=== PATIENT | male | born 1985 | race Caucasian/White ===

== ENCOUNTER 2019-10-18 16:33 | Emergency (ER) | payer OTHER ==
[~2019-10-18] VITALS: Ht 175.3 cm; Wt 76.7 kg
[2019-10-18 16:55] VITALS: BP 136/68
[2019-10-18] MEDS ORDERED: BACITRACIN OINT 500 UNITS/GM PKT TP ONE (17:15)
[2019-10-18] MEDS ORDERED: KETOROLAC 30 MG/ML VIAL IM ONE (17:15)
[2019-10-18 17:46] VITALS: BP 136/68
== END 2019-10-18 17:46 | disposition home or self-care (01) ==
LOC: MED 16:33
DX: S16.1XXA Strain of muscle, fascia and tendon at neck level, initial encounter (principal); V49.49XA Driver injured in collision with other motor vehicles in traffic accident, initial encounter; Y93.89 Activity, other specified; Y92.89 Other specified places as the place of occurrence of the external cause; Y99.8 Other external cause status
CPT/HCPCS: 99283; J1885

== ENCOUNTER 2019-12-05 23:30 | Emergency (ER) | payer OTHER ==
[~2019-12-05] VITALS: Ht 175.3 cm; Wt 79.8 kg
[2019-12-05 23:48] VITALS: BP 123/72
[2019-12-06] MEDS ORDERED: IBUPROFEN 600 MG TAB PO ONE (00:05)
[2019-12-06] MEDS ORDERED: ACETAMINOPHEN 325 MG TAB PO ONE (00:05)
[2019-12-06 00:32] VITALS: BP 123/72
== END 2019-12-06 00:32 | disposition home or self-care (01) ==
LOC: MED 23:30
DX: S46.812A Strain of other muscles, fascia and tendons at shoulder and upper arm level, left arm, initial encounter (principal); S16.1XXA Strain of muscle, fascia and tendon at neck level, initial encounter; V49.40XA Driver injured in collision with unspecified motor vehicles in traffic accident, initial encounter; Y93.89 Activity, other specified; Y92.89 Other specified places as the place of occurrence of the external cause; Y99.8 Other external cause status
CPT/HCPCS: 99283

== ENCOUNTER 2020-07-08 07:49 | Emergency (ER) | payer OTHER ==
[~2020-07-08] VITALS: Ht 175.3 cm; Wt 84.4 kg
[2020-07-08 07:55] VITALS: BP 125/78
--- NOTE | 2020-07-08 07:56 | NUR ---
Patient ambulated to bed 2. RN evaluating the patient at bedside.
--- NOTE | 2020-07-08 09:10 | NUR ---
35 YEAR OLD MALE COMPLAINS OF LEFT EYE PAIN. LEFT EYE WITH VISIBLE REDNESS, STATES THAT EYE HAD TRAUMA BUT ABLE TO SEE CLEARLY. PT AOX4, BREATHING EVEN AND UNLABORED, SKIN WARM AND DRY. BED IN LOWEST POSITION, LOCKED, BED RAIL UPX1. PMH - DENIES ALLERGIES - NKA
[2020-07-08 11:00] VITALS: BP 125/78
--- NOTE | 2020-07-08 11:00 | NUR ---
Patient discharged with v/s stable. Written and verbal after care instructions about retinal detachment given and explained. Patient alert, oriented and verbalized understanding of instructions. Ambulatory with steady gait. All questions addressed prior to discharge. ID band removed. Patient advised to follow up with PMD. Rx of motrin given. Patient educated on indication of medication including possible reaction and side effects. Opportunity to ask questions provided and answered.
== END 2020-07-08 11:00 | disposition home or self-care (01) ==
LOC: MED 07:49
DX: H33.22 Serous retinal detachment, left eye (principal)
CPT/HCPCS: 76536; 99284

== ENCOUNTER 2020-07-09 18:05 | Emergency (ER) | payer OTHER ==
[~2020-07-09] VITALS: Ht 175.3 cm; Wt 74.8 kg
--- NOTE | 2020-07-09 18:35 | NUR ---
Patient ambulated to bed 6. RN evaluating patient at bedside.
[2020-07-09 18:38] VITALS: BP 119/79
--- NOTE | 2020-07-09 18:48 | NUR ---
35 Y/O MALE C/O PENILE PAIN X2 DAYS WITH DISCHARGE/ITCHING AND DYSURIA S/P NEW SEXUAL PARTNER. PATIENT DENIES ANY CHILLS/FEVER AT THIS TIME. RESP EVEN AND UNLABORED. AAOX4.
--- NOTE | 2020-07-09 19:13 | NUR ---
RECEIVED REPORT FROM MINO CARDOZA FOR CONTINUATION OF CARE.
[2020-07-09 19:35] VITALS: BP 119/79
--- NOTE | 2020-07-09 19:35 | NUR ---
PATIENT LEFT WITHOUT BEING SEEN BY MELCHOR CHAMBERLAIN. NO FURTHER CARE PROVIDED FOR PATIENT.
== END 2020-07-09 19:35 | disposition left against medical advice (07) ==
LOC: MED 18:05
DX: N48.89 Other specified disorders of penis (principal); Z53.21 Procedure and treatment not carried out due to patient leaving prior to being seen by health care provider
CPT/HCPCS: 81002

== ENCOUNTER 2020-07-10 19:35 | Emergency (ER) | payer OTHER ==
[~2020-07-10] VITALS: Ht 175.3 cm; Wt 84.8 kg
[2020-07-10 20:30] VITALS: BP 121/74
--- NOTE | 2020-07-10 20:33 | NUR ---
TO LOBBY A/W BED AMBULATORY
--- NOTE | 2020-07-10 22:14 | NUR ---
To ED Chair A
[2020-07-10 22:17] LABS: APPEARANCE,URINE CLEAR (CLEAR); BILIRUBIN,URINE NEGATIVE (NEGATIVE); BLOOD, URINE TRACE-I (NEGATIVE); COLOR,URINE YELLOW (YELLOW); LEUKOCYTE ESTERASE ,URINE NEGATIVE (NEGATIVE); NITRITE, URINE NEGATIVE (NEGATIVE); PH,URINE 5.5 (5.0-9.0); UGLUCOSE 3+ (NEGATIVE)
[2020-07-10] MEDS ORDERED: AZITHROMYCIN 250 MG TAB PO ONE (22:30)
[2020-07-10] MEDS ORDERED: cefTRIAXone 500 MG in LIDOCAINE MPF 1% 1 ML IM ONE (22:30)
[2020-07-10 22:40] LABS: RBC,URINE 0-5 /HPF (0-5)
[2020-07-10 22:41] LABS: WBC,URINE 0-5 /HPF (0-5)
[2020-07-10] MEDS ORDERED: cefTRIAXone 500 MG VIAL ONE (22:49)
[2020-07-10] MEDS ORDERED: LIDOCAINE 2% 100 MG/5 ML SYR IVP ONE (23:13)
--- NOTE | 2020-07-10 23:23 | NUR ---
Patient discharged with v/s stable. Written and verbal after care instructions given and explained. Patient verbalized understanding. Ambulatory with steady gait. All questions addressed prior to discharge. Advised to follow up with PMD.
== END 2020-07-10 23:23 | disposition home or self-care (01) ==
LOC: MED 19:35
DX: R30.0 Dysuria (principal); A64 Unspecified sexually transmitted disease
CPT/HCPCS: 36415; 81001; 96372; 99283; J0696; J2001

== ENCOUNTER 2022-08-13 19:18 | Emergency (ER) | payer OTHER ==
[~2022-08-13] VITALS: Ht 177.8 cm; Wt 72.6 kg
[2022-08-13 19:40] VITALS: BP 124/79
--- NOTE | 2022-08-13 19:43 | NUR ---
TO LOBBY A/W BED AMBULATORY
[2022-08-13 20:32] LABS: APPEARANCE,URINE CLEAR (CLEAR); BILIRUBIN,URINE NEGATIVE (NEGATIVE); BLOOD, URINE TRACE-I (NEGATIVE); COLOR,URINE YELLOW (YELLOW); LEUKOCYTE ESTERASE ,URINE NEGATIVE (NEGATIVE); NITRITE, URINE NEGATIVE (NEGATIVE); UGLUCOSE 3+ (NEGATIVE)
[2022-08-13 20:36] LABS: RBC,URINE 0-5 /HPF (0-5); WBC,URINE NONE SEEN /HPF (0-5)
--- NOTE | 2022-08-13 22:11 | NUR ---
PT TO BED #7
--- NOTE | 2022-08-13 22:36 | NUR ---
Patient being evaluated by physician at bedside.
[2022-08-13 23:03] VITALS: BP 128/76
== END 2022-08-13 23:03 | disposition home or self-care (01) ==
LOC: MED 19:18
DX: N47.6 Balanoposthitis (principal)
CPT/HCPCS: 81001; 82948; 99283

== ENCOUNTER 2023-07-13 20:36 | Emergency (ER) | payer OTHER ==
[~2023-07-13] VITALS: Ht 177.8 cm; Wt 79.4 kg
[2023-07-13 21:06] VITALS: BP 110/68; PULSE 89; RESP 20; TEMP 99; O2SAT 98
== END 2023-07-14 01:20 | disposition left against medical advice (07) ==
LOC: MED 20:36
DX: R07.9 Chest pain, unspecified (principal); Z53.21 Procedure and treatment not carried out due to patient leaving prior to being seen by health care provider
CPT/HCPCS: 99281

== ENCOUNTER 2023-11-16 12:01 | Emergency (ER) | payer SELFPAY ==
[~2023-11-16] VITALS: Ht 175.3 cm; Wt 83.9 kg
[2023-11-16 12:14] VITALS: BP 118/71; PULSE 84; RESP 16; TEMP 97.2; O2SAT 97
[2023-11-16] MEDS ORDERED: TETRACAINE HCL/PF 0.5% OPTH 4 ML BTL ONE (12:32)
[2023-11-16] MEDS: FLUORESCEIN OPTH STRIP 1 MG OP ONE (12:48)
[2023-11-16] MEDS: TETRACAINE HCL/PF 0.5% OPTH 4 ML BTL OP ONE (12:48)
[2023-11-16 12:50] VITALS: BP 118/71; PULSE 84; RESP 16; TEMP 97.2; O2SAT 97
== END 2023-11-16 12:51 | disposition home or self-care (01) ==
LOC: MED 12:01
DX: H57.89 Other specified disorders of eye and adnexa (principal); Z79.899 Other long term (current) drug therapy
CPT/HCPCS: 99283

== ENCOUNTER 2023-12-27 22:58 | Emergency (ER) | payer SELFPAY ==
[~2023-12-27] VITALS: Ht 175.3 cm; Wt 74.8 kg
[2023-12-27 23:34] VITALS: BP 112/63; PULSE 89; RESP 18; TEMP 98.6; O2SAT 97
[2023-12-28 00:38] LABS: FLU A ANTIGEN POSITIVE (NEGATIVE); FLU B ANTIGEN NEGATIVE (NEGATIVE)
[2023-12-28] MEDS ORDERED: TAM75 PO (01:45)
[2023-12-28] MEDS ORDERED: BENZ200C4 PO (01:45)
== END 2023-12-28 01:52 | disposition home or self-care (01) ==
LOC: MED 22:58
DX: J10.1 Influenza due to other identified influenza virus with other respiratory manifestations (principal); Z20.822 Contact with and (suspected) exposure to COVID-19; Z79.899 Other long term (current) drug therapy
CPT/HCPCS: 99283

== ENCOUNTER 2024-05-02 20:49 | Emergency (ER) | payer SELFPAY ==
[~2024-05-02] VITALS: Ht 175.3 cm; Wt 79.4 kg
[~2024-05-02 20:49] MED LIST: BENZ200C4 PO; TAM75 PO
[2024-05-02 21:15] VITALS: BP 127/80; PULSE 90; RESP 18; TEMP 98.1; O2SAT 100
[2024-05-02 22:41] VITALS: BP 141/90; PULSE 80; RESP 18; TEMP 98; O2SAT 99
[2024-05-02] MEDS ORDERED: CEPH-588 PO (22:55)
== END 2024-05-02 23:00 | disposition home or self-care (01) ==
LOC: MED 20:49
DX: L02.421 Furuncle of right axilla (principal); E10.9 Type 1 diabetes mellitus without complications; Z79.899 Other long term (current) drug therapy
CPT/HCPCS: 99282